=== PATIENT | female | born 1995 | race Caucasian/White ===

== ENCOUNTER 2023-09-04 10:00 | Emergency (ER) | payer MEDICAID, OTHER ==
[~2023-09-04] VITALS: Ht 165.1 cm; Wt 70.0 kg
[2023-09-04] MEDS ORDERED: ONDANSETRON HCL 4MG/2ML INJ IV STA (10:30)
[2023-09-04] MEDS ORDERED: MORPHINE SULFATE 4 MG/ML CPJ (NOT FOR IM USE) IV STA (10:30)
[2023-09-04] MEDS ORDERED: CEFAZOLIN 1000MG PREMIX 50 ML IV ONE (10:30)
[2023-09-04] MEDS ORDERED: TETANUS, DIPHTHERIA, PERTUSSIS VAC/PF 0.5ML (>10YR OLD) IM ONE ×2 (10:30→13:30)
[2023-09-04] MEDS ORDERED: LIDOCAINE HCL/PF 1% 10 MG/ML 5ML VIAL INFIL ONE (10:45)
[2023-09-04] MEDS ORDERED: BACITRACIN ZINC OINT UDPKT TOP ONE (10:45)
[2023-09-04 11:09] LABS: BASOPHILS % 0.4 % (0.0-2.0); EOSINOPHILS % 1.2 % (0.0-5.0); HEMATOCRIT. 35.4 % (36.0-48.0); HEMOGLOBIN. 11.1 g/dL (12.0-16.0); LYMPHOCYTES % 9.7 % (20.0-50.0); MEAN CORPUSCULAR HEMOGLOBIN 25.7 pg (28.0-32.0); MEAN CORPUSCULAR HGB CONC 31.4 g/dL (31.0-37.0); MEAN CORPUSCULAR VOLUME 81.7 fL (81.0-99.0); MEAN PLATELET VOLUME 8.5 fl (7.4-10.4); MONOCYTES % 4.9 % (2.0-8.0); NEUTROPHILS % 83.8 % (40.0-76.0); PLATELET 301 x1000/uL (130-400); RED BLOOD CELL COUNT 4.34 mill/uL (4.2-5.4); RED CELL DISTRIBUTION WIDTH 16.5 % (11.6-14.6); WHITE BLOOD COUNT 11.5 x1000/uL (4.5-11.0)
[2023-09-04 11:21] LABS: HCG SCREEN NEGATIVE
[2023-09-04 11:30] LABS: ALANINE AMINOTRANSFERASE 9 IU/L (10-49); ALBUMIN 4.1 g/dL (3.2-4.8); ASPARTATE AMINOTRANSFERASE 28 IU/L (<34); BILIRUBIN TOTAL 0.5 mg/dL (0.1-1.0); CALCIUM 8.9 mg/dL (8.7-10.4); CARBON DIOXIDE 28 mEq/L (21-32); CHLORIDE 106 mEq/L (98-107); CREATININE 0.7 mg/dL (0.6-1.0); GLUCOSE 98 mg/dL (70-105); POTASSIUM 3.8 mEq/L (3.5-5.1); PROTEIN TOTAL 7.3 g/dL (6.0-8.3); SODIUM 141 mEq/L (136-145)
[2023-09-04 11:33] LABS: UREA NITROGEN BLOOD < 5 mg/dL (9-23)
[2023-09-04] MEDS ORDERED: BACITRACIN ZINC OINT UDPKT TOP NR (13:00)
[2023-09-04] MEDS ORDERED: PROPOFOL 200MG/20ML VIAL IV ONE (13:45)
[2023-09-04] MEDS ORDERED: KETAMINE HCL 50 MG/ML 10ML IV ONE (13:45)
[2023-09-04] MEDS ORDERED: MORPHINE SULFATE 4 MG/ML CPJ (NOT FOR IM USE) IV ONE (14:30)
[2023-09-04] MEDS ORDERED: PROPOFOL 200MG/20ML VIAL IV SCH (15:45)
[2023-09-04] MEDS ORDERED: KETAMINE HCL 50 MG/ML 10ML IV NR (15:45)
[2023-09-04 16:23] VITALS: O2SAT 100
[2023-09-04 16:46] VITALS: TEMP 98.4
[2023-09-04] MEDS ORDERED: MORPHINE SULFATE 2 MG/ML CPJ (NOT FOR IM USE) IV ONE ×2 (18:30→23:45)
[2023-09-04 23:49] VITALS: BP 119/78; PULSE 107; RESP 19
== END 2023-09-05 00:29 | disposition short-term general hospital (02) ==
LOC: ER 10:00
DX: S32.462A Displaced associated transverse-posterior fracture of left acetabulum, initial encounter for closed fracture (principal); S81.832A Puncture wound without foreign body, left lower leg, initial encounter; S73.005A Unspecified dislocation of left hip, initial encounter; V49.49XA Driver injured in collision with other motor vehicles in traffic accident, initial encounter; Y93.89 Activity, other specified; Y92.89 Other specified places as the place of occurrence of the external cause; Y99.8 Other external cause status
CPT/HCPCS: 80053; 84703; 85025; 36415; 73552; 71045; 72170; 73564; 73590; 70450; 72125; 72192; 90715; 90471; 96365; 96375; 96376; 99291; J0690; J3490 ×2; J2405; J2704; J2270 ×2; Z7610 ×7